=== PATIENT | male | born 1970 | race American Indian/Alaskan Native ===

== ENCOUNTER 2017-06-20 09:11 | Observation (INO) | payer MEDICAID, OTHER ==
[2017-06-20] MEDS ORDERED: Sodium Chloride 0.9% 1,000 ML IV STA (09:37)
--- NOTE | 2017-06-20 09:42 | ED PDOC ---
Arrival/HPI - General Chief Complaint: Male Genitourinary Time Seen by Provider: 06/20/17 09:36 Historian: Patient - History of Present Illness Narrative History of Present Illness (Text): 06/20/17 09:42 46yr old male presents today with a 2 week history of right testicular pain s/p heavy lifting. pt states 15 days ago the patient was doing a lot of heavy lifting. he states the next day he developed pain in his back and then developed swelling of the right side of the scrotum. pt states swelling increases with standing. Pt is c/o constant right sided abdominal pain and right sided scrotal pain. no fever/chills. denies dysuria. no urinary frequency. no dizziness or weakness. now c/o 4/10 pain. no other complaints. no medications taken for pain at home. Symptom Onset: Gradual Symptom Course: Worsening Quality: Aching, Fullness Severity Level: 6 Past Medical History - Provider Review Nursing Documentation Reviewed: Yes - Travel History Have you recently traveled outside [place] w/in the past 3 mons?: No - Infectious Disease Hx of Infectious Diseases: None - Tetanus Immunization Tetanus Immunization: Unknown - Psychiatric Hx Substance Use: No - Anesthesia Hx Anesthesia: No Family/Social History - Physician Review Nursing Documentation Reviewed: Yes Family/Social History: Unknown Family HX Smoking Status: Never Smoked Hx Alcohol Use: Yes Hx Substance Use: No Allergies/Home Meds Allergies/Adverse Reactions: Allergies No Known Allergies Allergy (Verified 06/20/17 09:29) Review of Systems - Review of Systems Constitutional: absent: Fatigue, Fevers Respiratory: absent: SOB, Cough Cardiovascular: absent: Chest Pain, Palpitations Gastrointestinal: Abdominal Pain. absent: Constipation, Diarrhea, Nausea, Vomiting Genitourinary Male: Other (right testicular swelling). absent: Dysuria, Frequency, Hematuria, Urinary Output Changes Musculoskeletal: Back Pain. absent: Arthralgias, Neck Pain Skin: absent: Rash, Pruritis Neurological: absent: Headache, Dizziness Psychiatric: absent: Anxiety, Depression Physical Exam Vital Signs Reviewed: Yes Vital Signs Temp Pulse Resp BP Pulse Ox 06/20/17 13:46 74 18 106/65 100 06/20/17 12:04 98.2 F 73 18 106/60 100 06/20/17 11:12 86 18 112/66 97 06/20/17 10:06 114/68 06/20/17 09:25 99.8 F H 96 H 16 98/63 L 98 Temperature: Afebrile Blood Pressure: Normal Pulse: Regular Respiratory Rate: Normal Appearance: Positive for: Well-Appearing, Non-Toxic, Comfortable Pain Distress: None Mental Status: Positive for: Alert and Oriented X 3 - Systems Exam Head: Present: Atraumatic Mouth: Present: Moist Mucous Membranes Respiratory/Chest: Present: Clear to Auscultation Cardiovascular: Present: Regular Rate and Rhythm Abdomen: Present: Tenderness (RLQ and suprapubic abdominal tenderness), Normal Bowel Sounds. No: Distention, Peritoneal Signs, Rebound, Guarding Genitourinary Male: Present: Circumcised Penis, Hernias, Other (right sided scrotal swelling with tenderness). No: Normal External Genitalia, Penile Discharge, Erythema Back: Present: Normal Inspection. No: CVA Tenderness, Midline Tenderness Upper Extremity: Present: Normal Inspection Neurological: Present: GCS=15, Speech Normal Skin: Present: Warm, Dry, Normal Color. No: Rashes Psychiatric: Present: Alert, Oriented x 3 Medical Decision Making ED Course and Treatment: 06/20/17 09:47 Patient is nontoxic well appearing with stable vital signs presenting with right sided abdominal pain and swelling of right testicle x 2 weeks. CBC wnl CMP wnl Lipase wnl Urinalysis: CAT scan: FINDINGS: LOWER THORAX: Unremarkable. LIVER: Unremarkable. No gross lesion or ductal dilatation. GALLBLADDER AND BILE DUCTS: Unremarkable. PANCREAS: Unremarkable. No gross lesion or ductal dilatation. SPLEEN: Unremarkable. ADRENALS: Unremarkable. No mass. KIDNEYS AND URETERS: Unremarkable. No hydronephrosis. No solid mass. VASCULATURE: Unremarkable. No aortic aneurysm. BOWEL: Unremarkable. No obstruction. No gross mural thickening. APPENDIX: Normal appendix. PERITONEUM: Unremarkable. No free fluid. No free air. LYMPH NODES: Unremarkable. No enlarged lymph nodes. BLADDER: Unremarkable. REPRODUCTIVE: There is a right-sided hydrocele and varicocele BONES: No acute fracture. OTHER FINDINGS: None. IMPRESSION: No acute intra-abdominal findings US testicle; FINDINGS: RIGHT TESTICLE: Measures 5.4 x 2.9 x 3.5 cm. Homogeneous echotexture. No mass. Blood flow demonstrated with arterial signal. Mildly asymmetrically increased blood flow relative to the left testicle. RIGHT EPIDIDYMIS: Diffusely enlarged and markedly increased blood flow consistent with epididymitis. LEFT TESTICLE: Measures 5.5 x 2.6 x 3.0 cm. Homogeneous echotexture. No mass. Normal blood flow. LEFT EPIDIDYMIS: Normal size and morphology. HYDROCELE: Complex right hydrocele with septations. VARICOCELE: None. OTHER FINDINGS: None. IMPRESSION: Right epididymo-orchitis. Complex right hydrocele. Patient reassessment: pt non toxic well appearing; no distress. Discussed all results with patient in depth Patient states he is sexually active with more than one partner. Will treat the patient for gonorrhea and chlamydia with Rocephin and Zithromax. Will discharge the patient home on Macrobid. Advised follow-up with the urologist. Advised immediate return if symptoms worsen persist or if new concerning symptoms develop Patient verbalizes understanding of discharge instructions and need for immediate followup. all aspects of this case were discussed the attending of record. Impression: Abdominal pain, testicular pain, epididymitis, orchitis Motrin every 6 hours as needed for pain Macrobid 1 tablet twice daily 10 days Follow-up with urologist within the next 2 days Follow up with primary care physician within the next 2 days Return immediately if symptoms worsen persist or if new symptoms develop: High fevers, increasing pain, vomiting, diarrhea or any other concerning symptoms develop - Medication Orders Current Medication Orders: Discontinued Medications Azithromycin (Zithromax) 1,000 mg PO STAT STA PRN Reason: Protocol Stop: 06/20/17 14:18 Ceftriaxone Sodium (Rocephin) 250 mg IM STAT STA PRN Reason: Protocol Stop: 06/20/17 14:18 Sodium Chloride (Sodium Chloride 0.9%) 1,000 mls @ 999 mls/hr IV .Q1H1M STA Stop: 06/20/17 10:37 Last Admin: 06/20/17 09:53 Dose: 999 mls/hr Iohexol (Omnipaque 240 (50 Ml)) Confirm Administered Dose 50 ml .ROUTE .STK-MED ONE Stop: 06/20/17 09:53 Iohexol (Omnipaque 350 100 Ml) Confirm Administered Dose 350 mg .ROUTE .STK-MED ONE Stop: 06/20/17 11:33 Ketorolac Tromethamine (Toradol) 30 mg IVP STAT STA Stop: 06/20/17 09:38 Last Admin: 06/20/17 09:51 Dose: 30 mg ED OBSERVATION Discharge: Yes Date of observation admission: 06/20/17 Time of observation admission: 09:37 - Observation admission statement Patient is being placed in observation because:: abdominal pain/testicular pain - Goals of Observation Goals of observation are:: improvement in symptoms - Progress Note Progress Note: 06/20/17 11:30 pt in no distress; stable vitals 06/20/17 13:20 pt resting comfortably; no distress 06/20/17 14:19 pt in no distress. discussed results with patient; advised f/u with urologist. Disposition/Present on Arrival - Present on Arrival Any Indicators Present on Arrival: No History of DVT/PE: No History of Uncontrolled Diabetes: No Urinary Catheter: No History of Decub. Ulcer: No History Surgical Site Infection Following: None - Disposition Have Diagnosis and Disposition been Completed?: Yes Diagnosis: Orchitis and epididymitis, Testicular pain, Abdominal pain Disposition: HOME/ ROUTINE Disposition Time: 14:29 Patient Plan: Discharge Condition: GOOD
[2017-06-20 09:47] LABS: URINE BILIRUBIN NEGATIVE (NEGATIVE); URINE BLOOD NEGATIVE (NEGATIVE); URINE COLOR YELLOW (YELLOW); URINE GLUCOSE (UA) NEGATIVE (NEGATIVE); URINE KETONE NEGATIVE (NEGATIVE); URINE LEUKOCYTE ESTERASE NEGATIVE Leu/uL (NEGATIVE); URINE PROTEIN TRACE mg/dL (<30 mg/dL)
[2017-06-20 09:48] LABS: URINE APPEARANCE SL CLOUDY (CLEAR)
[2017-06-20] MEDS ORDERED: Iohexol 240 (50 ml) ONE (09:52)
[2017-06-20 10:04] LABS: URINE RBC 0 - 2 /hpf (0-2); URINE WBC 0 - 2 /hpf (0-6)
[2017-06-20 10:05] LABS: URINE BACTERIA FEW (NEG); URINE EPITHELIAL CELLS 0 - 2 /hpf (0-5)
[2017-06-20 10:07] LABS: BASO # 0.01 K/mm3 (0.0-2.0); BASO % 0.1 % (0.0-3.0); EOS # 0.1 (0.0-0.7); GRAN # 9.12 (1.4-6.5); GRAN % 83.5 % (50.0-68.0); HEMATOCRIT 35.9 % (42.0-52.0); LYMPH # 1.2 (1.2-3.4); LYMPH % 10.9 % (22.0-35.0); MEAN CELL VOLUME 83.1 fl (80.0-105.0); MEAN CORPUSCULAR HEMOGLOBIN 28.5 pg (25.0-35.0); MEAN CORPUSCULAR HGB CONC 34.3 g/dl (31.0-37.0); MEAN PLATELET VOLUME 9.9 fl (7.0-11.0); MONO # 0.5 (0.1-0.6); MONO % 4.5 % (1.0-6.0); RED CELL DISTRIBUTION WIDTH 13.3 % (11.5-14.5); WHITE BLOOD COUNT 10.9 10^3/ul (4.5-11.0)
[2017-06-20 10:16] LABS: ALB/GLOB RATIO 1.1 (1.1-1.8); ALKALINE PHOSPHATASE 77 U/L (38-126); ALT/SGPT 40 U/L (7-56); AST/SGOT 34 U/L (17-59); BILIRUBIN,TOTAL 0.5 mg/dL (0.2-1.3); BLOOD UREA NITROGEN 9 mg/dL (7-21); CALCIUM 9.1 mg/dL (8.4-10.5); CARBON DIOXIDE 26 mmol/L (21-33); CHLORIDE 104 mmol/L (98-107); GFR AFRICAN-AMERICAN > 60; GLUCOSE,RANDOM 100 mg/dL (70-110); LIPASE 31 U/L (23-300); POTASSIUM 3.9 mmol/L (3.6-5.0); SODIUM 141 mmol/L (132-148); TOTAL PROTEIN 7.8 g/dL (5.8-8.3)
[2017-06-20 11:12] VITALS: RESP 18
[2017-06-20] MEDS ORDERED: Iohexol 350 MG/100 ML VIAL ONE (11:32)
[2017-06-20 12:05] VITALS: TEMP 98.2; O2SAT 100
--- NOTE | 2017-06-20 12:34 | CT ---
PROCEDURE: CT Abdomen and Pelvis with contrast HISTORY: rlq abdominal pain, inguinal hernia COMPARISON: None. TECHNIQUE: Contrast dose: 100 cc of Omni 350 Radiation dose: Total exam DLP = 523 mGy-cm. This CT exam was performed using one or more of the following dose reduction techniques: Automated exposure control, adjustment of the mA and/or kV according to patient size, and/or use of iterative reconstruction technique. FINDINGS: LOWER THORAX: Unremarkable. LIVER: Unremarkable. No gross lesion or ductal dilatation. GALLBLADDER AND BILE DUCTS: Unremarkable. PANCREAS: Unremarkable. No gross lesion or ductal dilatation. SPLEEN: Unremarkable. ADRENALS: Unremarkable. No mass. KIDNEYS AND URETERS: Unremarkable. No hydronephrosis. No solid mass. VASCULATURE: Unremarkable. No aortic aneurysm. BOWEL: Unremarkable. No obstruction. No gross mural thickening. APPENDIX: Normal appendix. PERITONEUM: Unremarkable. No free fluid. No free air. LYMPH NODES: Unremarkable. No enlarged lymph nodes. BLADDER: Unremarkable. REPRODUCTIVE: There is a right-sided hydrocele and varicocele BONES: No acute fracture. OTHER FINDINGS: None. IMPRESSION: No acute intra-abdominal findings
[2017-06-20 13:47] VITALS: BP 106/65; PULSE 74
--- NOTE | 2017-06-20 14:14 | US ---
HISTORY: right sided testicular swelling TECHNIQUE: Realtime sonography through the scrotum with color and doppler flow. COMPARISON: None Available. FINDINGS: RIGHT TESTICLE: Measures 5.4 x 2.9 x 3.5 cm. Homogeneous echotexture. No mass. Blood flow demonstrated with arterial signal. Mildly asymmetrically increased blood flow relative to the left testicle. RIGHT EPIDIDYMIS: Diffusely enlarged and markedly increased blood flow consistent with epididymitis. LEFT TESTICLE: Measures 5.5 x 2.6 x 3.0 cm. Homogeneous echotexture. No mass. Normal blood flow. LEFT EPIDIDYMIS: Normal size and morphology. HYDROCELE: Complex right hydrocele with septations. VARICOCELE: None. OTHER FINDINGS: None. IMPRESSION: Right epididymo-orchitis. Complex right hydrocele.
[2017-06-20] MEDS ORDERED: cefTRIAXone (Rocephin) 250 mg Inj IM STA (14:17)
== END 2017-06-20 14:29 | disposition home or self-care (01) ==
LOC: ED 09:11 → EROBSV 09:37
PROVIDERS: ADMIT Emergency Medicine; ATTEND Emergency Medicine
DX: N45.2 Orchitis (principal); N45.1 Epididymitis; N50.811 Right testicular pain; R10.9 Unspecified abdominal pain
CPT/HCPCS: 74177; 80053; 81001; 83690; 85025; 87491; 87591; 93975; 96372; 96374; 99284; G0378; J0696; J1885; J7040; Q9966; Q9967